=== PATIENT | male | born 1985 | race Caucasian/White ===

== ENCOUNTER 2017-08-12 11:51 | Emergency (ER) | payer OTHER ==
[2017-08-12] MEDS ORDERED: KETOROLAC 30 MG/ML INJ ONE (12:24)
[2017-08-12] MEDS ORDERED: METHYLPREDNISOLONE 125 MG INJ ONE (12:24)
[2017-08-12] MEDS ORDERED: CYCLOBENZAPRINE 10 MG TAB ONE (12:24)
[2017-08-12] MEDS ORDERED: HYDROCODONE/APAP 10/325 TAB ONE (12:26)
--- NOTE | 2017-08-12 13:28 | ER ---
Nurse's Notes [facility] Name: Agus Maldonado Age: 31 yrs Sex: Male : 1985 Arrival Date: 08/12/2017 Time: 11:54 Bed 14 Private MD: Diagnosis: Torticollis;Strain of muscle, fascia and tendon at neck level Presentation: 08/12 12:03 Presenting complaint: Patient states: Neck pain after playing in pool on Wednesday. aj Patient reports pain is worse upon waking this AM, unable to move head. Transition of care: patient was not received from another setting of care. Onset of symptoms was August 08, 2017. Care prior to arrival: None. 12:03 Method Of Arrival: Ambulatory aj 12:03 Acuity: JOAQUÍN 3 aj 12:08 Initial Sepsis Screen: Does the patient meet any 2 criteria? No. Patient's initial hj sepsis screen is negative. Does the patient have a suspected source of infection? No. Patient's initial sepsis screen is negative. Triage Assessment: 12:05 General: Appears in no apparent distress. uncomfortable, Behavior is calm, cooperative, aj appropriate for age. Pain: Complains of pain in back of neck Pain currently is 10 out of 10 on a pain scale. Neuro: Level of Consciousness is awake, alert, obeys commands, Oriented to person, place, time, situation, Appropriate for age. Respiratory: Airway is patent Respiratory effort is even, unlabored, Respiratory pattern is regular, symmetrical. Derm: Skin is intact, is healthy with good turgor, Skin is pink, warm \T\ dry. normal. Musculoskeletal: Reports pain in back of neck. Historical: - Allergies: 12:05 No Known Allergies; aj - Home Meds: 12:05 Ibuprofen Oral [Active]; Atenolol Oral [Active]; aj - PMHx: 12:05 Hypertension; aj - PSHx: 12:05 achilies tendon and bone spurr removed from L foot.; aj - Immunization history:: Adult Immunizations up to date. - Social history:: Smoking status: Patient uses tobacco products, denies chronic smoking, but will smoke occasionally. Screenin:08 Abuse screen: Denies threats or abuse. Denies injuries from another. Nutritional hj screening: No deficits noted. Tuberculosis screening: No symptoms or risk factors identified. Fall Risk None identified. Assessment: 12:12 General: Appears in no apparent distress. uncomfortable, Behavior is calm, cooperative, hj appropriate for age. Pain: Complains of pain in back of neck Pain currently is 8 out of 10 on a pain scale. Quality of pain is described as aching, Pain began 2-3 days ago. Is continuous. Neuro: Level of Consciousness is awake, alert, obeys commands, Oriented to person, place, time, situation, Appropriate for age. Cardiovascular: Capillary refill < 3 seconds Patient's skin is warm and dry. Respiratory: Airway is patent Respiratory effort is even, unlabored, Respiratory pattern is regular, symmetrical. GI: No signs and/or symptoms were reported involving the gastrointestinal system. : EENT: Reports pain in back of neck. Derm: No signs and/or symptoms reported regarding the dermatologic system. Musculoskeletal: Reports pain in back of neck Denies weakness in back of neck numbness in, back of neck. Vital Signs: 12:05 BP 140 / 91; Pulse 87; Resp 17; Temp 97.3; Pulse Ox 97% on R/A; Weight 102.06 kg; aj Height 6 ft. 2 in. (187.96 cm); Pain 10/10; 12:05 Body Mass Index 28.89 (102.06 kg, 187.96 cm) aj ED Course: 11:54 Patient arrived in ED. mr 12:04 Triage completed. aj 12:05 Arm band placed on right wrist. Patient placed in an exam room. aj 12:08 Reuben Whitt, RN is Primary Nurse. hj 12:09 Patient has correct armband on for positive identification. Bed in low position. Call hj light in reach. Side rails up X 1. 12:10 Jason Zuñiga NP is PHCP. pm1 12:10 Live Hernández MD is Attending Physician. pm1 13:57 No provider procedures requiring assistance completed. Patient did not have IV access hj during this emergency room visit. Administered Medications: 12:21 Drug: SOLU-Medrol 125 mg Route: IM; Site: right deltoid; hj 13:50 Follow up: Response: No adverse reaction hj 12:21 Drug: [place] 10 mg-325 mg 1 tabs Route: PO; hj 13:49 Follow up: Response: No adverse reaction; Pain is decreased hj 12:21 Drug: Flexeril 10 mg Route: PO; hj 13:49 Follow up: Response: No adverse reaction; Pain is decreased 12:21 Drug: TORadol 60 mg Route: IM; Site: left deltoid; 13:49 Follow up: Response: No adverse reaction; Pain is decreased Outcome: 13:27 Discharge ordered by MD. pm1 13:57 Discharged to home ambulatory, with family. hj 13:57 Condition: stable 13:57 Discharge instructions given to patient, family, Instructed on discharge instructions, follow up and referral plans. medication usage, Demonstrated understanding of instructions, follow-up care, medications, Prescriptions given X 4. 14:00 Patient left the ED. Signatures: Alana Jara RN RN aj Rivera, Maria mr Joaquin, Henry, RN RN hj Marinas, Patrick, ES [employer] C[employer]IST pm1
--- NOTE | 2017-08-12 13:28 | EDPHYS ---
Physician Documentation [facility] Name: Agus Maldonado Age: 31 yrs Sex: Male : 1985 Arrival Date: 08/12/2017 Time: 11:54 Bed 14 Private MD: ED Physician Live Hernández HPI: 08/12 15:54 This 31 yrs old Male presents to ER via Ambulatory with complaints of Neck pm1 Pain, >24Hrs Old. 15:54 The patient or guardian complains of pain, that is acute. The symptoms are located on pm1 the left trapezius and right trapezius. Onset: The symptoms/episode began/occurred 3 day(s) ago. Context: The problem was sustained at home, The neck injury/problem resulted from lifting. Associated signs and symptoms: Pertinent negatives: fever, bladder incontinence, bowel incontinence, nausea, numbness, tingling, vomiting, weakness. The pain does not radiate. Modifying factors: The symptoms are alleviated by remaining still, the symptoms are aggravated by movement, head and rotation of his shoulders bilaterally. Severity of symptoms: in the emergency department the symptoms are actually worse. The patient has not experienced similar symptoms in the past. The patient has not recently seen a physician. Patient was playing chicken fights with his 110 lb son on his shoulder. Patient reports that his son was pushing against him and he had to lean his head back a bit to hold himself up straight. A few hours after playing. his neck started to hurt. The next morning when he woke up it was worse. Historical: - Allergies: 12:05 No Known Allergies; aj - Home Meds: 12:05 Ibuprofen Oral [Active]; Atenolol Oral [Active]; aj - PMHx: 12:05 Hypertension; aj - PSHx: 12:05 achilies tendon and bone spurr removed from L foot.; aj - Immunization history:: Adult Immunizations up to date. - Social history:: Smoking status: Patient uses tobacco products, denies chronic smoking, but will smoke occasionally. ROS: 15:54 Constitutional: Negative for fever, chills, and weight loss, Eyes: Negative for injury, pm1 pain, redness, and discharge, ENT: Negative for injury, pain, and discharge. 15:54 Cardiovascular: Negative for chest pain, palpitations, and edema, Respiratory: Negative for shortness of breath, cough, wheezing, and pleuritic chest pain, Abdomen/GI: Negative for abdominal pain, nausea, vomiting, diarrhea, and constipation, Back: Negative for injury and pain, : Negative for injury, bleeding, discharge, and swelling, MS/Extremity: Negative for injury and deformity, Skin: Negative for injury, rash, and discoloration, Neuro: Negative for headache, weakness, numbness, tingling, and seizure. 15:54 Neck: Positive for tenderness, of the right trapezius and left trapezius. Exam: 15:54 Constitutional: This is a well developed, well nourished patient who is awake, alert, pm1 and in no acute distress. Head/Face: Normocephalic, atraumatic. 15:54 Chest/axilla: Normal chest wall appearance and motion. Nontender with no deformity. No lesions are appreciated. Cardiovascular: Regular rate and rhythm with a normal S1 and S2. No gallops, murmurs, or rubs. Normal PMI, no JVD. No pulse deficits. Respiratory: Lungs have equal breath sounds bilaterally, clear to auscultation and percussion. No rales, rhonchi or wheezes noted. No increased work of breathing, no retractions or nasal flaring. Abdomen/GI: Soft, non-tender, with normal bowel sounds. No distension or tympany. No guarding or rebound. No evidence of tenderness throughout. Back: No spinal tenderness. No costovertebral tenderness. Full range of motion. Skin: Warm, dry with normal turgor. Normal color with no rashes, no lesions, and no evidence of cellulitis. MS/ Extremity: Pulses equal, no cyanosis. Neurovascular intact. Full, normal range of motion. 15:54 Neck: External neck: crepitus, is not appreciated, tenderness, of the left trapezius, right trapezius, right posterior aspect of neck and left posterior aspect of neck, C-spine: vertebral tenderness, is not appreciated, Lymph nodes: no appreciated lymphadenopathy. 15:54 Neuro: Orientation: is normal, Motor: moves all fours, Gait: is steady, at a normal pace, without difficulty. Vital Signs: 12:05 BP 140 / 91; Pulse 87; Resp 17; Temp 97.3; Pulse Ox 97% on R/A; Weight 102.06 kg; aj Height 6 ft. 2 in. (187.96 cm); Pain 10/10; 12:05 Body Mass Index 28.89 (102.06 kg, 187.96 cm) aj MDM: 12:11 Patient medically screened. pm1 13:21 Data reviewed: vital signs. Data interpreted: Pulse oximetry: on room air is 97 %. pm1 Interpretation: normal. Counseling: I had a detailed discussion with the patient and/or guardian regarding: the historical points, exam findings, and any diagnostic results supporting the discharge/admit diagnosis, the need for outpatient follow up, to return to the emergency department if symptoms worsen or persist or if there are any questions or concerns that arise at home. 13:21 Medication response: improvement in symptoms with medications given in the ER. pm1 Administered Medications: 12:21 Drug: SOLU-Medrol 125 mg Route: IM; Site: right deltoid; hj 13:50 Follow up: Response: No adverse reaction hj 12:21 Drug: [place] 10 mg-325 mg 1 tabs Route: PO; hj 13:49 Follow up: Response: No adverse reaction; Pain is decreased hj 12:21 Drug: Flexeril 10 mg Route: PO; hj 13:49 Follow up: Response: No adverse reaction; Pain is decreased hj 12:21 Drug: TORadol 60 mg Route: IM; Site: left deltoid; hj 13:49 Follow up: Response: No adverse reaction; Pain is decreased hj Disposition: 16:23 Co-signature as Attending Physician, Live Hernández MD. rn Disposition: 08/12/17 13:27 Discharged to Home. Impression: Torticollis, Strain of muscle, fascia and tendon at neck level. - Condition is Stable. - Discharge Instructions: Muscle Strain, Torticollis, Acute. - Prescriptions for Naprosyn 500 mg Oral Tablet - take 1 tablet by ORAL route 2 times per day take with food; 30 tablet. Prednisone 20 mg Oral Tablet - take 3 tablet by ORAL route once daily for 5 days; 15 tablet. Tylenol- Codeine #3 300-30 mg Oral Tablet - take 2 tablet by ORAL route every 6 hours As needed; 30 tablet. Cyclobenzaprine 10 mg Oral Tablet - take 1 tablet by ORAL route every 8 hours As needed; 30 tablet. - Work release form, Medication Reconciliation Form, Thank You Letter, Antibiotic Education, Prescription Opioid Use form. - Follow up: Emergency Department; When: As needed; Reason: Worsening of condition. Follow up: Private Physician; When: 2 - 3 days; Reason: Recheck today's complaints, Continuance of care, Re-evaluation by your physician. - Problem is new. - Symptoms have improved. Signatures: Alana Jara RN RN aj Nieto, Roman, MD MD rn Joaquin, Henry, RN RN hj Marinas, Patrick, ES [employer] pm1 Corrections: (The following items were deleted from the chart) 14:00 13:27 08/12/2017 13:27 Discharged to Home. Impression: Torticollis; Strain of muscle, hj fascia and tendon at neck level. Condition is Stable. Forms are Medication Reconciliation Form, Thank You Letter, Antibiotic Education, Prescription Opioid Use. Follow up: Emergency Department; When: As needed; Reason: Worsening of condition. Follow up: Private Physician; When: 2 - 3 days; Reason: Recheck today's complaints, Continuance of care, Re-evaluation by your physician. Problem is new. Symptoms have improved. pm1
== END 2017-08-12 14:00 | disposition home or self-care (01) ==
LOC: ER 11:51
DX: S16.1XXA Strain of muscle, fascia and tendon at neck level, initial encounter (principal); X58.XXXA Exposure to other specified factors, initial encounter; Y93.89 Activity, other specified; Y92.009 Unspecified place in unspecified non-institutional (private) residence as the place of occurrence of the external cause; Z72.0 Tobacco use; I10 Essential (primary) hypertension
CPT/HCPCS: 96372; 99283; J2930